=== PATIENT | male | born 1995 | race Caucasian/White ===

== ENCOUNTER 2017-11-22 09:52 | Emergency (ER) | payer OTHER ==
[2017-11-22] MEDS ORDERED: DIPRIVAN 200 MG/20 ML IV ONE (09:53)
--- NOTE | 2017-11-22 10:04 | ERPHSYRPT ---
- History of Present Illness Time Seen by Provider: 11/22/17 09:59 Source: patient Exam Limitations: no limitations Physician History: 22-year-old white male arrives with complaint of the left shoulder pain and possible dislocation symptoms since just prior to arrival states he grabbed a piece of metal at work and felt as if she left shoulder became dislocated. Patient states he's had a dislocated shoulder in the past. Past medical history patient denies. Past surgical history eye surgery. Social history positive for tobacco use. Occurred: just prior to arrival Method of Injury: unknown (pulling on a piece of metal at work) Quality: constant Extremities Pain Location: shoulder: left Modifying Factors: Improves With: nothing Associated Symptoms: other (shoulder pain) Allergies/Adverse Reactions: No Known Drug Allergies Allergy (Unverified 11/22/17 10:00) - Review of Systems Constitutional: No Fever, No Chills Eyes: No Symptoms Ears, Nose, & Throat: No Symptoms Respiratory: No Cough, No Dyspnea Cardiac: No Chest Pain, No Edema, No Syncope Abdominal/Gastrointestinal: No Abdominal Pain, No Nausea, No Vomiting, No Diarrhea Genitourinary Symptoms: No Dysuria Musculoskeletal: Other (left shoulder pain and deformity) Skin: No Rash Neurological: No Dizziness, No Focal Weakness, No Sensory Changes Psychological: No Symptoms Endocrine: No Symptoms All Other Systems: Reviewed and Negative - Past Medical History Pertinent Past Medical History: No - Past Surgical History Past Surgical History: Yes Other Surgical History: eye surgery - Social History Smoking Status: Current every day smoker - Nursing Vital Signs Nursing Vital Signs: Initial Vital Signs Temperature 97.8 F 11/22/17 09:52 Pulse Rate 80 11/22/17 09:52 Respiratory Rate 18 11/22/17 09:52 Blood Pressure 147/91 11/22/17 09:52 O2 Sat by Pulse Oximetry 96 11/22/17 09:52 Pain Scale Pain Intensity 3 - Physical Exam General Appearance: mild distress Eyes, Ears, Nose, Throat Exam: moist mucous membranes Neck Exam: non-tender, supple Cardiovascular/Respiratory Exam: chest non-tender, normal breath sounds, regular rate/rhythm, no respiratory distress Abdominal Exam: non-tender, No guarding Back Exam: normal inspection, No vertebral tenderness Shoulder Exam: No normal inspection (left shoulder decreased range of motion secondary to pain, palpable deformity left shoulder) Elbow/Forearm Exam: normal inspection, non-tender, no evidence of injury, normal ROM Wrist Exam: normal inspection, non-tender, no evidence of injury, normal ROM Hand Exam: normal inspection Neuro/Tendon Exam: normal sensation, normal motor functions Mental Status Exam: alert, oriented x 3, cooperative Skin Exam: normal color, warm, dry SpO2 Interpretation: normal - Course Nursing assessment & vital signs reviewed: Yes - Radiology Exams Left Shoulder X-ray Interpretation: Discussed w/ radiologist (x-ray left shoulder: Anterior inferior humeral head dislocation. No other bony, articular, or soft tissue abnormalities.) Left Other X-ray Interpretation: Discussed w/ radiologist (post reduction left shoulder: successful reduction of previoushumeral head dislocation. no other bony, articular or soft tissue abnormalities.) Ordered Tests: Active Orders 24 hr Category Date Time Status IV Insertion STAT Care 11/22/17 09:57 Active SHOULDER Stat Exams 11/22/17 09:58 Completed SHOULDER Stat Exams 11/22/17 10:51 Completed Medication Summary Generic Name Dose Route Start Last Admin Trade Name Freq PRN Reason Stop Dose Admin Lactated Ringer's 1,000 mls @ 999 mls/hr 11/22/17 10:45 11/22/17 10:46 Lactated Ringers IV 11/22/17 11:45 999 mls/hr .Q1H1M ONE Administration Discontinued Medications Generic Name Dose Route Start Last Admin Trade Name Freq PRN Reason Stop Dose Admin Lactated Ringer's Confirm 11/22/17 10:25 Lactated Ringers Administered 11/22/17 10:26 Dose 1,000 mls @ ud IV .STK-MED ONE - Progress Progress: improved Progress Note: 11/22/17 10:40 22-year-old white male arrives with complaint of a left shoulder dislocation at work just prior to arrival. Patient with an anterior inferior humeral head dislocation no other bony, articular, or soft tissue abnormalities are noted, Anesthesia is consulted for sedation Studies provided by [facility] with propofol. Left shoulder reduced with traction in usual fashion. Sling is applied. Post reduction x-ray is ordered. 11/22/17 11:24 Patient in no acute distress at this time feels much better. Awake alert orientedx3 Left upper extremity neurovascularly intact, full range of motion left finger sensation intact left fingers good capillary refill left fingers radial and ulnar pulses are intact 2 over 4. Will release patient with sling in place and stabilized with [place] wrap patient states he has a shoulder immobilizer at home, Patient states Dr. Lopez is his company physician he will follow-up with him. Will give patient a small amount of [place] for pain. Patient not to drive today will send home for today. - Departure Time of Disposition: 11:30 Departure Disposition: Home Clinical Impression: Dislocation of left shoulder joint Qualifiers: Encounter type: initial encounter Qualified Code(s): S43.005A - Unspecified dislocation of left shoulder joint, initial encounter Condition: Fair Critical Care Time: No Additional Instructions: Return home no driving today. No use of left upper extremity until cleared by your work . Cold packs left shoulder 24-48 hours. Use sling and swath/shoulder immobilizer until seen by your work . [place] 5/325 as directed. May also use Advil OTC every 6 hours. Return for acute distress or for severe symptoms. Follow-up with your work tomorrow call today to arrange an appointment. Prescriptions: Hydrocodone/Acetaminophen [[place] 5-325 Tablet] 1 tab PO Q4-6HPRN PRN #12 tablet MDD 6 tablets PRN Reason: Pain
--- NOTE | 2017-11-22 10:23 | XRAY ---
Indication: Pain following injury. Comparison: None 2 views of the left shoulder demonstrates anterior inferior humeral head dislocation. No other bony, articular, or soft tissue abnormalities.
[2017-11-22] MEDS ORDERED: Lactated Ringers 1,000 ML IV ONE ×2 (10:25→10:45)
--- NOTE | 2017-11-22 10:59 | XRAY ---
Indication: Post reduction. Comparison: Taken earlier in the day. 2 views of the left shoulder demonstrates successful reduction of previous humeral head dislocation. No other bony, articular, or soft tissue abnormalities.
[2017-11-22 11:59] VITALS: BP 151/82; PULSE 82; O2SAT 99
[2017-11-22 19:05] LABS: Amphetamine,Urine NEGATIVE (NEGATIVE); Barbiturate,Urine NEGATIVE (NEGATIVE); Benzodiazepine,Urine NEGATIVE (NEGATIVE); Cocaine,Urine NEGATIVE (NEGATIVE); Methadone,Urine NEGATIVE (NEGATIVE); Opiate,Urine NEGATIVE (NEGATIVE); PCP,Urine NEGATIVE (NEGATIVE); THC,Urine NEGATIVE (NEGATIVE)
== END 2017-11-22 11:57 | disposition home or self-care (01) ==
LOC: ED 09:52
PROC: 0RSKXZZ Reposition Left Shoulder Joint, External Approach (ICD-10-PCS; principal; 2017-11-22)
DX: S43.005A Unspecified dislocation of left shoulder joint, initial encounter (principal); X50.1XXA Overexertion from prolonged static or awkward postures, initial encounter; Y93.89 Activity, other specified; Y92.89 Other specified places as the place of occurrence of the external cause; Y99.0 Civilian activity done for income or pay
CPT/HCPCS: 23655; 36000; 73030; 80307; 96360; 96374; 99284; J2704

== ENCOUNTER 2018-05-23 15:13 | Emergency (ER) | payer OTHER ==
[2018-05-23] MEDS ORDERED: DIPRIVAN 200 MG/20 ML IV ONE (15:14)
[2018-05-23] MEDS ORDERED: Versed 2 MG/2 ML Injection IV ONE (15:14)
[2018-05-23] MEDS ORDERED: Sodium Chloride 0.9% 1000 ML 1,000 ML IV STA (15:30)
--- NOTE | 2018-05-23 15:35 | ERPHSYRPT ---
- History of Present Illness Time Seen by Provider: 05/23/18 15:27 Source: patient Exam Limitations: no limitations Patient Subjective Stated Complaint: pt states he was at work and sliped at work and fell now co pain to left shoulder. he dislocated shoulder before, Triage Nursing Assessment: pt alert, resp easy, skin w/d/p, no brusing or abrasions noted. pt unable to lift arm, has strong radial pulse Physician History: Pt states, he slipped and tried to catch himself, dislocated his left shoulder at work. He had multiple left shoulder dislocations since a highschool football injury 6 years ago. he denies other injury or complaints, no head or neck trauma , no LOC, vomiting. Occurred: this afternoon, hours ago (1.5) Quality: constant Severity of Pain-Max: severe Severity of Pain-Current: severe Extremities Pain Location: shoulder: left Modifying Factors: Improves With: immobilization, movement Associated Symptoms: none Allergies/Adverse Reactions: No Known Drug Allergies Allergy (Verified 05/23/18 15:28) Hx Tetanus, Diphtheria Vaccination/Date Given: Yes Hx Influenza Vaccination/Date Given: No Hx Pneumococcal Vaccination/Date Given: No Immunizations Up to Date: Yes - Review of Systems Constitutional: No Symptoms Cardiac: No Symptoms Musculoskeletal: Other (left shoulder pain) All Other Systems: Reviewed and Negative - Past Medical History Pertinent Past Medical History: Yes Musculoskeletal History: Other Other Medical History: left shoulder dislocation - Past Surgical History Past Surgical History: Yes Other Surgical History: eye surgery - Social History Smoking Status: Former smoker How long have you smoked: 10 years Exposure to second hand smoke: Yes Drug Use: none Patient Lives Alone: Yes - Nursing Vital Signs Nursing Vital Signs: Initial Vital Signs Temperature 97 F 05/23/18 15:22 Pulse Rate 77 05/23/18 15:22 Respiratory Rate 16 05/23/18 15:22 Blood Pressure 141/89 05/23/18 15:22 O2 Sat by Pulse Oximetry 98 05/23/18 15:22 Pain Scale Pain Intensity 5 - Physical Exam General Appearance: no apparent distress Eyes, Ears, Nose, Throat Exam: normal ENT inspection, moist mucous membranes Neck Exam: normal inspection, non-tender, supple Cardiovascular/Respiratory Exam: chest non-tender, normal breath sounds, regular rate/rhythm, heart sounds normal, no ecchymosis, no JVD Abdominal Exam: non-tender, soft Back Exam: normal inspection, No CVA tenderness Shoulder Exam: asymmetry (left shoulder dislocated, normal distal pulses and sensation, normal muscle function, no sign of neurovascular injury.) Hand Exam: normal inspection, non-tender Neuro/Tendon Exam: normal sensation, normal motor functions Mental Status Exam: alert, oriented x 3, cooperative Skin Exam: normal color, warm, dry, No rash SpO2 Interpretation: normal SpO2: 98 O2 Delivery: Room Air Procedures - Joint Reduction Timeout: Performed Joint Reduction Site: Left Conscious Sedation: Yes Reduction Attempts: 1 Pre-Procedure Neurovascular Exam: neurovascular intact, well perfused Post Procedure Neurovascular Exam: neurovascular intact, unchanged from pre-exam Post Joint Reduction Film: joint reduced Progress: Dr Cardenas provided moderate sedation to reduction. - Course Nursing assessment & vital signs reviewed: Yes - Radiology Exams Left Shoulder X-ray Interpretation: Reviewed by me, Other (dislocated, post reduction: good position.) Ordered Tests: Active Orders 24 hr Category Date Time Status IV Insertion STAT Care 05/23/18 15:30 Active SHOULDER Stat Exams 05/23/18 15:29 Completed SHOULDER Stat Exams 05/23/18 17:15 Taken Urine Triage Profile Stat Lab 05/23/18 15:30 Uncollected Medication Summary Discontinued Medications Generic Name Dose Route Start Last Admin Trade Name Locoq PRN Reason Stop Dose Admin Fentanyl Citrate 75 mcg 05/23/18 16:23 05/23/18 16:31 Sublimaze 100 Mcg/2 Ml IV 05/23/18 16:24 75 mcg STAT ONE Administration Fentanyl Citrate Confirm 05/23/18 16:26 Sublimaze 100 Mcg/2 Ml Administered 05/23/18 16:27 Dose 100 mcg .ROUTE .STK-MED ONE Sodium Chloride 1,000 mls @ 999 mls/hr 05/23/18 15:30 05/23/18 16:03 Sodium Chloride 0.9% 1000 Ml IV 05/23/18 16:30 999 mls/hr .Q1H1M STA Administration Sodium Chloride Confirm 05/23/18 16:01 Sodium Chloride 0.9% 1000 Ml Administered 05/23/18 16:02 Dose 1,000 mls @ ud .ROUTE .STK-MED ONE Ondansetron HCl 4 mg 05/23/18 16:24 05/23/18 16:30 Zofran 4 Mg/2 Ml Vial IV 05/23/18 16:25 4 mg STAT ONE Administration Ondansetron HCl Confirm 05/23/18 16:26 Zofran 4 Mg/2 Ml Vial Administered 05/23/18 16:27 Dose 4 mg .ROUTE .STK-MED ONE - Progress Progress: improved Progress Note: 05/23/18 17:36 Left shoulder reduced in moderate sedation, Dr Michael Cardenas performed sedation, patient tolerated well, achieved good position, he is being discharged in sling and swath to rest x 3-4 days and follow up with Orthopedic surgeon in 3-4 days. Counseled pt/family regarding: diagnosis, need for follow-up, rad results - Departure Departure Disposition: Home Clinical Impression: Dislocation of left shoulder joint Qualifiers: Encounter type: initial encounter Qualified Code(s): S43.005A - Unspecified dislocation of left shoulder joint, initial encounter Condition: Stable Critical Care Time: No Referrals: ANDREAS PATTEN [Primary Care Provider] - Instructions: Shoulder Dislocation (DC) Additional Instructions: Rest in sling and swath x 3-4 days, and follow up with Orthopedic surgeon, return if severe pain, sudden numbness, discoloration coldness of hand, fingers! Forms: Work/School Release Form Prescriptions: Hydrocodone/APAP 5-325 Tab^^^ [[place] 5-325 Tablet^^^] 1 tab PO Q6HPRN PRN #10 tablet MDD 6 PRN Reason: Pain
[2018-05-23] MEDS ORDERED: Sodium Chloride 0.9% 1000 ML 1,000 ML ONE (16:01)
--- NOTE | 2018-05-23 16:14 | XRAY ---
Indication: Pain following fall. Comparison: September 22, 2017. 2 views of the left shoulder demonstrates recurring anterior inferior humeral head dislocation with stable left lung calcified granulomas. No other bony, articular, or soft tissue abnormalities.
[2018-05-23] MEDS ORDERED: SUBLIMAZE 100 MCG/2 ML IV ONE (16:23)
[2018-05-23] MEDS ORDERED: Zofran 4 MG/2 ML VIAL IV ONE (16:24)
[2018-05-23] MEDS ORDERED: SUBLIMAZE 100 MCG/2 ML ONE (16:26)
[2018-05-23] MEDS ORDERED: Zofran 4 MG/2 ML VIAL ONE (16:26)
[2018-05-23 18:04] VITALS: BP 113/58; PULSE 74; O2SAT 97
--- NOTE | 2018-05-24 08:44 | XRAY ---
Indication: Post reduction. Comparison: Earlier in the day. Single AP left shoulder appears to demonstrates successful reduction of previous humeral head dislocation. No new acute findings.
== END 2018-05-23 18:24 | disposition home or self-care (01) ==
LOC: ED 15:13
DX: S43.005A Unspecified dislocation of left shoulder joint, initial encounter (principal); Q71.892 Other reduction defects of left upper limb; W01.198A Fall on same level from slipping, tripping and stumbling with subsequent striking against other object, initial encounter; Y93.89 Activity, other specified; Y92.69 Other specified industrial and construction area as the place of occurrence of the external cause
CPT/HCPCS: 23650; 36000; 73030; 96360; 96374; 96375; 99140; 99284; J2250; J2405; J2704; J3010